=== PATIENT | female | born 1990 | race African-American/Black ===

== ENCOUNTER 2017-05-06 00:12 | Emergency (ER) | payer MEDICAID ==
[~2017-05-06] VITALS: Ht 160 cm; Wt 51.7 kg
[2017-05-06 00:31] VITALS: BP 117/72
[2017-05-06] MEDS ORDERED: cefTRIAXone SOD 1,000 MG VL IM ONE (02:45)
== END 2017-05-06 03:34 | disposition home or self-care (01) ==
LOC: ER 00:14
DX: L03.213 Periorbital cellulitis (principal); F17.210 Nicotine dependence, cigarettes, uncomplicated
CPT/HCPCS: 96372; 99283; J0696

== ENCOUNTER 2018-02-23 16:10 | Observation (INO) | payer MEDICAID ==
[2018-02-23] MEDS ORDERED: LIDOCAINE 2% (LOCAL ANESTH.) PF 5ml SDV ID ONE (17:00)
[2018-02-23] MEDS ORDERED: LIDOCAINE 2%HCL (LOCAL ANESTH.) INJ 20ML MDV ONE (17:09)
== END 2018-02-23 19:08 | disposition home or self-care (01) | DRG 566 ==
LOC: LDRP 16:10
PROVIDERS: ADMIT Specialist; ATTEND Specialist
DX: O26.893 Other specified pregnancy related conditions, third trimester (principal); N75.0 Cyst of Bartholin's gland; Z3A.31 31 weeks gestation of pregnancy
CPT/HCPCS: 59025; 81002; 87077; 87186; 87205; G0378

== ENCOUNTER 2018-03-05 15:26 | Emergency (ER) | payer MEDICAID ==
[~2018-03-05] VITALS: Ht 160 cm; Wt 71.2 kg
[2018-03-05] MEDS ORDERED: LIDOCAINE 1% (LOCAL ANESTH.) PF 5ml SDV ID ONE (20:30)
[2018-03-05 21:31] VITALS: BP 119/66
== END 2018-03-05 21:51 | disposition home or self-care (01) ==
LOC: ER 15:33
DX: O34.83 Maternal care for other abnormalities of pelvic organs, third trimester (principal); N75.0 Cyst of Bartholin's gland; Z3A.33 33 weeks gestation of pregnancy
CPT/HCPCS: 56420

== ENCOUNTER 2018-04-13 13:35 | Observation (INO) | payer MEDICAID ==
[2018-04-13] MEDS ORDERED: PREN-96 PO (14:10)
== END 2018-04-13 15:05 | disposition home or self-care (01) | DRG 566 ==
LOC: LDRP 13:35
PROVIDERS: ADMIT Specialist; ATTEND Specialist
DX: O36.8130 Decreased fetal movements, third trimester, not applicable or unspecified (principal); O23.593 Infection of other part of genital tract in pregnancy, third trimester; Z3A.38 38 weeks gestation of pregnancy
CPT/HCPCS: 59025; 81002; G0378

== ENCOUNTER 2021-10-04 14:04 | Emergency (ER) | payer OTHER, MEDICAID ==
[~2021-10-04] VITALS: Ht 160 cm; Wt 59.0 kg
[~2021-10-04 14:04] MED LIST: PREN-96 PO
[2021-10-04 14:56] LABS: Urine Bacteria NONE SEEN /hpf (None Seen); Urine Blood 2+ /uL (Negative); Urine Mucus FEW (None Seen); Urine Specific Gravity 1.025 (1.001-1.035); Urine WBC 1 /hpf (0 - 5)
[2021-10-04 16:29] LABS: Basophils # (auto) 0 10 ^3/uL (0-0.2); Basophils % (auto) 0.7 % (0.0-2.0); Eosinophils # (auto) 0.3 10 ^3/uL (0-0.8); Eosinophils % (auto) 5.4 % (0.0-7.0); Hematocrit 44.6 % (36.0-46.0); Hemoglobin 14.3 g/dL (12.2-16.2); Lymphocytes # (auto) 1.4 10 ^3/uL (0.4-5.4); Lymphocytes % (auto) 28.3 % (10.0-50.0); Mean Corpuscular Hemoglobin 27.7 pg (28.0-32.0); Mean Corpuscular Hgb Conc. 32.2 g/dL (32.0-36.0); Mean Corpuscular Volume 86.2 fL (80.0-100.0); Monocytes # (auto) 0.4 10 ^3/uL (0-1.3); Monocytes % (auto) 9.2 % (0.0-12.0); Neutrophils # (auto) 2.8 10 ^3/uL (1.6-8.6); Neutrophils % (auto) 56.4 % (37.0-80.0); Red Blood Cells 5.17 10^6/uL (4.0-5.20); Red Cell Distribution Width 13.2 % (11.8-14.3); White Blood Cell 4.9 10^3/uL (4.4-10.8)
[2021-10-04 16:40] LABS: Albumin 3.7 g/dL (3.4-5.0); Calcium 9.2 mg/dL (8.5-10.1); Potassium 4.2 mmol/L (3.5-5.1)
[2021-10-04 16:42] LABS: Bilirubin, Total 0.3 mg/dL (0.2-1.0); Total Protein 7.5 g/dL (6.4-8.2)
[2021-10-04 18:32] VITALS: BP 108/68
== END 2021-10-04 18:32 | disposition home or self-care (01) ==
LOC: ER 14:04
DX: O03.4 Incomplete spontaneous abortion without complication (principal); Z3A.09 9 weeks gestation of pregnancy
CPT/HCPCS: 36415; 76801; 76817; 80053; 81001; 81025; 84702; 85025; 86850; 86900; 86901

== ENCOUNTER 2021-10-11 03:49 | Emergency (ER) | payer OTHER, MEDICAID ==
[~2021-10-11] VITALS: Ht 160 cm; Wt 59.0 kg
[2021-10-11 05:12] LABS: Basophils # (auto) 0 10 ^3/uL (0-0.2); Basophils % (auto) 0.9 % (0.0-2.0); Eosinophils # (auto) 0.4 10 ^3/uL (0-0.8); Eosinophils % (auto) 9.5 % (0.0-7.0); Hematocrit 38.8 % (36.0-46.0); Hemoglobin 12.4 g/dL (12.2-16.2); Lymphocytes # (auto) 2.1 10 ^3/uL (0.4-5.4); Lymphocytes % (auto) 46.7 % (10.0-50.0); Mean Corpuscular Hemoglobin 27.9 pg (28.0-32.0); Mean Corpuscular Volume 87.2 fL (80.0-100.0); Monocytes # (auto) 0.4 10 ^3/uL (0-1.3); Monocytes % (auto) 7.9 % (0.0-12.0); Neutrophils # (auto) 1.6 10 ^3/uL (1.6-8.6); Nucleated Red Blood Cells % 0.1 %; Red Blood Cells 4.45 10^6/uL (4.0-5.20); Red Cell Distribution Width 13.5 % (11.8-14.3); White Blood Cell 4.4 10^3/uL (4.4-10.8)
[2021-10-11 05:20] LABS: Albumin 3.1 g/dL (3.4-5.0); BUN/Creatinine Ratio 14.3; Calcium 8.6 mg/dL (8.5-10.1); Potassium 3.7 mmol/L (3.5-5.1)
[2021-10-11 05:23] LABS: Bilirubin, Total 0.2 mg/dL (0.2-1.0); Total Protein 6.1 g/dL (6.4-8.2)
[2021-10-11] MEDS ORDERED: ceFAZolin 1GM/50ML 50 ML IV ONE (07:30)
[2021-10-11] MEDS ORDERED: NS/OXYTOCIN 20UNITS 1,000 ML IV ONE (07:30)
[2021-10-11 13:00] VITALS: BP 94/60
[2021-10-11] MEDS ORDERED: METH-822 PO (14:09)
[2021-10-11] MEDS ORDERED: CEPH-509 PO (14:09)
== END 2021-10-11 14:42 | disposition home or self-care (01) ==
LOC: ER 03:49
DX: O03.9 Complete or unspecified spontaneous abortion without complication (principal); Z3A.01 Less than 8 weeks gestation of pregnancy
CPT/HCPCS: 36415; 76801; 76817; 80053; 84702; 85025; 96365; 96366; 96368; 99285; J0690; J2590

== ENCOUNTER 2023-01-22 20:24 | Inpatient (IN) | payer MEDICAID, OTHER ==
[~2023-01-22 20:24] MED LIST changes: +CEPH-509 PO; +METH-822 PO
[2023-01-22] MEDS ORDERED: DERMOPLAST 60ML BOTTLE TOP PRN (21:00)
[2023-01-22] MEDS ORDERED: PHISODERM TOP SOLN 240ML BTL TOP PRN (21:00)
[2023-01-22] MEDS ORDERED: WITCH HAZEL-GLYCERIN PAD TOP PRN (21:00)
[2023-01-22] MEDS ORDERED: LACT. RINGERS/OXYTOCIN 20UNITS 500 ML IV ONE ×2 (21:30→22:00)
[2023-01-22 21:57] LABS: Basophils # (auto) 0 10 ^3/uL (0-0.2); Basophils % (auto) 0.4 % (0.0-2.0); Eosinophils # (auto) 0.1 10 ^3/uL (0-0.8); Eosinophils % (auto) 0.9 % (0.0-7.0); Hematocrit 38.2 % (36.0-46.0); Hemoglobin 12.9 g/dL (12.2-16.2); Lymphocytes % (auto) 10.4 % (10.0-50.0); Mean Corpuscular Hgb Conc. 33.7 g/dL (32.0-36.0); Mean Corpuscular Volume 89.2 fL (80.0-100.0); Monocytes # (auto) 0.6 10 ^3/uL (0-1.3); Monocytes % (auto) 6.4 % (0.0-12.0); Neutrophils # (auto) 8.2 10 ^3/uL (1.6-8.6); Neutrophils % (auto) 81.9 % (37.0-80.0); Nucleated Red Blood Cells % 0.1 %; Red Blood Cells 4.28 10^6/uL (4.0-5.20); Red Cell Distribution Width 14.4 % (11.8-14.3)
[2023-01-22] MEDS ORDERED: PREN-96 PO (22:02)
[2023-01-22 22:14] LABS: Albumin 3.5 g/dL (3.2-4.8); Alkaline Phosphatase 152 U/L (46-116); Anion Gap 7 (5-15); Aspartate Aminotransferase 15 U/L (13-40); BUN/Creatinine Ratio 7.6 (10.0-20.0); Bilirubin, Total 0.5 mg/dL (0.2-1.0); Blood Urea Nitrogen 5 mg/dL (9-23); Calcium 9.1 mg/dL (8.7-10.4); Carbon Dioxide 22 mmol/L (20-30); Chloride 107 mmol/L (98-107); Potassium 3.6 mmol/L (3.5-5.1); Sodium 136 mmol/L (136-145); Total Protein 5.9 g/dL (5.7-8.2)
[2023-01-22] MEDS: IBUPROFEN 600 MG TAB PO PRN (22:14)
[2023-01-22 22:16] LABS: Alanine Aminotransferase < 9 U/L (7-40)
[2023-01-22 22:22] LABS: INR 0.94 (0.9-1.15); Partial Thromboplastin Time 25.4 SEC (24.5-34.5); Prothrombin Time 9.9 sec (9.3-11.8)
[2023-01-22] MEDS ORDERED: IBU600T PO (22:24)
[2023-01-22 22:34] LABS: Glucose 88 mg/dL (74-106)
[2023-01-22] MEDS: DOCUSATE SOD 100 MG CAP PO PRN (22:51)
[2023-01-23] MEDS: ACETAMINOPHEN 325 MG TAB PO PRN ×2 (00:31→17:20)
[2023-01-23 02:40] VITALS: BP 101/48; PULSE 76; RESP 16; TEMP 98.8
[2023-01-23 03:40] LABS: Urine Bacteria FEW /hpf (None Seen); Urine Blood 3+ /uL (Negative); Urine Clarity Clear (Clear); Urine Color Yellow (Yellow); Urine Protein, UAD TRACE (Negative); Urine Specific Gravity 1.011 (1.001-1.035); Urine Urobilinogen Normal (Negative); Urine WBC 54 /hpf (0 - 5); Urine pH 5.5 (5.0-8.0)
[2023-01-23 04:30] LABS: Amphetamine Screen, Urine Neg (NEGATIVE)
[2023-01-23 04:31] LABS: Barbiturate Scree,Urine Neg (NEGATIVE); Benzodiazephine Screen, Urine Neg (NEGATIVE); Cannabinoid Screen, Urine Neg (NEGATIVE); Cocaine Screen, Urine Neg (NEGATIVE); Opiate Scree,Urine Neg (NEGATIVE); Phencyclidine Screen, Urine Neg (NEGATIVE)
[2023-01-23 06:38] VITALS: BP 107/58; PULSE 64; RESP 18; TEMP 97.8; O2SAT 99
[2023-01-23] MEDS: IBUPROFEN 600 MG TAB PO PRN ×3 (07:00→20:17)
[2023-01-23 11:00] VITALS: BP 110/64; PULSE 68; RESP 16; TEMP 98.4
[2023-01-23 15:00] VITALS: BP 107/61; PULSE 63; RESP 16; TEMP 98.3
[2023-01-23 18:55] VITALS: BP 98/51; PULSE 68; RESP 17; TEMP 98.5; O2SAT 96
[2023-01-23] MEDS: DOCUSATE SOD 100 MG CAP PO PRN (22:08)
[2023-01-23 22:50] VITALS: BP 102/62; PULSE 66; RESP 17; TEMP 98.6; O2SAT 97
[2023-01-24 02:35] VITALS: BP 101/66; PULSE 62; RESP 16; TEMP 98.4; O2SAT 97
[2023-01-24 07:00] VITALS: BP 109/67; PULSE 78; RESP 16; TEMP 97.6; O2SAT 97
[2023-01-24] MEDS ORDERED: DOCUSATE CALCIUM 240 MG CAP PO SCH (07:00)
[2023-01-24 07:06] LABS: RPR Non Reactive (Non Reactive)
[2023-01-24 07:30] VITALS: PULSE 78; RESP 18
[2023-01-24] MEDS: IBUPROFEN 600 MG TAB PO PRN (10:29)
[2023-01-24 11:00] VITALS: BP 115/70; PULSE 80; RESP 16; TEMP 98.5; O2SAT 97
[2023-01-27 21:06] LABS: Treponema pallidum Ab (FTA-Ab) Non Reactive (Non Reactive)
== END 2023-01-24 15:14 | disposition home or self-care (01) | DRG 776 ==
LOC: LDRP 20:24
PROVIDERS: ADMIT Obstetrics & Gynecology; ATTEND Obstetrics & Gynecology
PROC: 10E0XZZ Delivery of Products of Conception, External Approach (ICD-10-PCS; principal; 2023-01-22)
DX: Z39.0 Encounter for care and examination of mother immediately after delivery (principal); Z28.20 Immunization not carried out because of patient decision for unspecified reason
CPT/HCPCS: 36415; 59414; 80053; 80307; 81001; 85025; 85610; 85730; 86592; 86850; 86900; 86901; 94760; 96365; 96366; G0378